=== PATIENT | male | born 1940 | race Caucasian/White ===

== ENCOUNTER 2016-07-11 11:54 | Inpatient (IN) | payer MEDICARE, OTHER ==
[~2016-07-11] VITALS: Ht 160 cm; Wt 74.9 kg
[2016-07-11] MEDS ORDERED: ONDANSETRON 4 MG INJ IV STA (14:05)
[2016-07-11] MEDS ORDERED: ASPIRIN 325 MG TAB PO STA (14:05)
[2016-07-11] MEDS ORDERED: morphine 4 MG/ML VIAL IV STA (14:05)
[2016-07-11] MEDS ORDERED: FURO20TA3 PO (14:16)
[2016-07-11] MEDS ORDERED: HYDR-906 PO (14:17)
[2016-07-11] MEDS ORDERED: NEBI10TA2 PO (14:17)
[2016-07-11] MEDS ORDERED: ASPI1CPM8 PO (14:17)
[2016-07-11] MEDS ORDERED: DOCU-144 PO (14:18)
[2016-07-11] MEDS ORDERED: ALFU10TA2 PO (14:18)
[2016-07-11] MEDS ORDERED: LABETALOL HCL 20MG INJ IV ONE (14:30)
[2016-07-11] MEDS ORDERED: ASPIRIN 325 MG TAB ONE (14:35)
[2016-07-11] MEDS ORDERED: morphine 4 MG/ML VIAL ONE (14:35)
[2016-07-11] MEDS ORDERED: LABETALOL HCL 20MG INJ ONE (14:35)
[2016-07-11] MEDS ORDERED: ONDANSETRON 4 MG INJ ONE (14:35)
[2016-07-11 14:54] LABS: BASOPHILS % 0.3 % (0.0-2.0); EOSINOPHILS # 0.1 10^3/ul (0.0-0.5); EOSINOPHILS % 1.1 % (0.0-7.0); HEMATOCRIT 38.2 % (42.0-52.0); HEMOGLOBIN 12.5 g/dl (14.0-18.0); LYMPHOCYTES # 1.2 10^3/ul (0.8-2.9); LYMPHOCYTES % 18.8 % (15.0-51.0); MEAN CORPUSCULAR HEMOGLOBIN 31.3 pg (29.0-33.0); MEAN CORPUSCULAR HGB CONC 32.7 g/dl (32.0-37.0); MEAN CORPUSCULAR VOLUME 95.7 fl (82.0-101.0); MEAN PLATELET VOLUME 6.8 fl (7.4-10.4); MONOCYTE # 0.6 10^3/ul (0.3-0.9); MONOCYTES % 9.8 % (0.0-11.0); NEUTROPHIL # 4.3 10^3/ul (1.6-7.5); PLATELET COUNT 212 10^3/UL (140-440); RED CELL DISTRIBUTION WIDTH 12.1 % (11.5-14.5); UNCORRECTED WBC 6.2 10^3/ul (4.8-10.8); WHITE BLOOD COUNT 6.2 10^3/ul (4.8-10.8)
[2016-07-11 15:02] LABS: CONDITION 1
[2016-07-11 15:10] LABS: INR 0.98; PARTIAL THROMBOPLASTIN TIME 32.9 Sec (25.0-35.0)
[2016-07-11 15:11] LABS: ALBUMIN 4.1 g/dl (3.3-4.9); CHLORIDE 103 mmol/L (97-110); SODIUM 145 mmol/L (135-144)
[2016-07-11 15:13] LABS: BILIRUBIN,INDIRECT 0.7 mg/dl (0-1.1); BILIRUBIN,TOTAL 0.7 mg/dl (0.2-1.3); CREATININE 1.28 mg/dl (0.61-1.24)
[2016-07-11 15:14] LABS: ALANINE AMINOTRANSFERASE 33 IU/L (13-69); ALBUMIN/GLOBULIN RATIO 1.41; ALKALINE PHOSPHATASE 57 IU/L (42-121); ANION GAP 16 (8-16); ASPARTATE AMINO TRANSFERASE 29 IU/L (15-46); BLOOD UREA NITROGEN 33 mg/dl (7-20); CALCIUM 8.8 mg/dl (8.4-10.2); CARBON DIOXIDE 30 mmol/L (21-31); GLUCOSE 91 mg/dl (70-220)
[2016-07-11 15:27] LABS: TROPONIN-I < 0.012 ng/ml (0.00-0.12)
--- NOTE | 2016-07-11 17:21 | ERA ---
ER Documentation Chief Complaint Date/Time DATE: 07/11/16 TIME: 17:15 Chief Complaint pt here for htn, 195/85 HPI Patient comes in for evaluation for elevated blood pressure readings. His son also reports episodes of syncope. Apparently he had an episode where he passed out and broke his left arm. His left arm was evaluated at [facility] emergency department and placed in an arm sling. He says he has had another syncopal event since that time. His son states his blood pressures had these elevations or spikes since then. He says in the [facility] emergency department they gave him something for the blood pressure but his blood pressure keeps elevating. He denies any headache, chest pain, shortness of breath, dizziness, focal weakness, nausea, vomiting, fever, sore throat, otalgia, diarrhea. Patient states he has been taking his blood pressure medications as prescribed. He states he does not know why his blood pressure has been so uncontrollable as of late. He also does not know what is triggering these episodes of syncope. They seem to be happening at random. ROS All systems reviewed and are negative except as per history of present illness. Medications Home Meds Reported Medications Alfuzosin Hcl* (Alfuzosin Hcl*) 10 Mg Tab.er.24h, 10 MG PO DAILY, #30 TAB.SA 07/11/16 Docusate Sodium* (Colace*) 100 Mg Capsule, 100 MG PO DAILY, #30 CAP 07/11/16 Nebivolol Hcl* (Bystolic*) 10 Mg Tablet, 10 MG PO BID, #30 TAB 07/11/16 Aspirin-Dipyridamole* (Aggrenox*) 25-200 Mg Cpmp.12hr, 1 CAP PO BID, CAP 07/11/16 Hydrocodone/Acetaminophen ([place] 5-325 Tablet) 1 Each Tablet, 1 EACH PO Q6, TAB 07/11/16 Furosemide* (Furosemide*) 20 Mg Tablet, 20 MG PO DAILY, #60 TAB 07/11/16 Allergies Allergies: Coded Allergies: No Known Allergy (Unverified , 07/11/16) PMhx/Soc Hx Cardiac Disorders: Yes (HNT) Hx Alcohol Use: No Hx Substance Use: No Hx Tobacco Use: No Smoking Status: Never smoker FmHx Family History: No diabetes Physical Exam Vitals Vital Signs Date Time Temp Pulse Resp B/P Pulse Ox O2 Delivery O2 Flow Rate FiO2 07/11/16 17:12 179/76 07/11/16 15:19 61 18 147/65 100 07/11/16 15:16 Nasal Cannula 2 07/11/16 12:01 97.9 71 18 195/85 97 Physical Exam Const: [] Head: Atraumatic Eyes: Normal Conjunctiva ENT: Normal External Ears, Nose and Mouth. Neck: Full range of motion..~ No meningismus. Resp: Clear to auscultation bilaterally Cardio: Regular rate and rhythm, no murmurs Abd: Soft, non tender, non distended. Normal bowel sounds Skin: No petechiae or rashes Back: No midline or flank tenderness Ext: No cyanosis, or edema Neur: Awake and alert Psych: Normal Mood and Affect Result Diagram: 07/11/16 1445 07/11/16 1445 Results 24 hrs Laboratory Tests Test 07/11/16 14:45 Activated Partial Thromboplast Time 32.9Sec Alanine Aminotransferase (ALT/SGPT) 33IU/L Albumin 4.1g/dl Albumin/Globulin Ratio 1.41 Alkaline Phosphatase 57IU/L Anion Gap 16 Aspartate Amino Transf (AST/SGOT) 29IU/L Basophils # 0.010^3/ul Basophils % 0.3% Blood Morphology Comment Blood Urea Nitrogen 33mg/dl Calcium Level 8.8mg/dl Carbon Dioxide Level 30mmol/L Chloride Level 103mmol/L Creatinine 1.28mg/dl Direct Bilirubin 0.00mg/dl Eosinophils # 0.110^3/ul Eosinophils % 1.1% Globulin 2.90g/dl Glucose Level 91mg/dl Hematocrit 38.2% Hemoglobin 12.5g/dl INR International Normalized Ratio 0.98 Indirect Bilirubin 0.7mg/dl Lymphocytes # 1.210^3/ul Lymphocytes % 18.8% Mean Corpuscular Hemoglobin 31.3pg Mean Corpuscular Hemoglobin Concent 32.7g/dl Mean Corpuscular Volume 95.7fl Mean Platelet Volume 6.8fl Monocytes # 0.610^3/ul Monocytes % 9.8% Neutrophils # 4.310^3/ul Neutrophils % 70.0% Nucleated Red Blood Cells # 0.010^3/ul Nucleated Red Blood Cells % 0.0/100WBC Platelet Count 41416^3/UL Potassium Level 4.0mmol/L Prothrombin Time 13.0Sec Prothrombin Time Ratio 1.0 Red Blood Count 4.0010^6/ul Red Cell Distribution Width 12.1% Sodium Level 145mmol/L Total Bilirubin 0.7mg/dl Total Protein 7.0g/dl Troponin I < 0.012ng/ml White Blood Count 6.210^3/ul Current Medications Medications (Trade) Dose Ordered Sig/Anne Route PRN Reason Start Time Stop Time Status Last Admin Dose Admin Aspirin (Aspirin) 325 mg ONCE STAT PO 07/11/16 14:05 07/11/16 14:09 DC 07/11/16 14:38 Morphine Sulfate (morphine) 4 mg ONCE STAT IV 07/11/16 14:05 07/11/16 14:09 DC 07/11/16 14:39 Ondansetron HCl (Zofran Inj) 4 mg ONCE STAT IV 07/11/16 14:05 07/11/16 14:09 DC 07/11/16 14:38 Labetalol HCl (Labetalol) 20 mg ONCE ONCE IV 07/11/16 14:30 07/11/16 14:31 DC 07/11/16 14:38 Hydralazine HCl (Apresoline) 20 mg ONCE ONCE IV 07/11/16 17:30 07/11/16 17:31 DC 07/11/16 17:21 Procedures/MDM CT head did not demonstrate any acute stroke or bleed. Chest x-ray did not demonstrate any acute cardiopulmonary process EKG shows normal sinus rhythm at approximately 60 bpm AZ interval slightly prolonged, no old EKGs available for comparison. Patient's blood pressure came down from 195/85-179/76 after 20 mg of labetalol IV. Departure Diagnosis: Primary Impression: Hypertensive urgency Additional Impressions: Syncope and collapse Humerus fracture Qualified Code: S42.295D - Other closed nondisplaced fracture of proximal end of left humerus with routine healing, subsequent encounter Condition: AVELINA Jackson Jul 11, 2016 17:21
[2016-07-11] MEDS ORDERED: hydrALAzine 20 MG INJ IV ONE (17:30)
[2016-07-11] MEDS ORDERED: ONDANSETRON 4 MG INJ IV PRN (18:30)
[2016-07-11] MEDS ORDERED: LABETALOL HCL 20MG INJ IV PRN (18:30)
[2016-07-11] MEDS ORDERED: NITROGLYCERIN (SL) 0.4 MG TAB SL PRN (18:30)
[2016-07-11] MEDS ORDERED: DOCUSATE SODIUM 100 MG CAP PO PRN (18:30)
[2016-07-11] MEDS ORDERED: NACL 0.9% 3 ML SYG IV SCH (18:30)
[2016-07-11] MEDS ORDERED: LORAZEPAM 2 MG INJ IV PRN (18:30)
[2016-07-11] MEDS ORDERED: hydrALAzine 20 MG INJ IV PRN (18:30)
[2016-07-11] MEDS ORDERED: morphine 2 MG INJ IV PRN (18:30)
--- NOTE | 2016-07-11 18:32 | HP ---
Date/Time of Note Date/Time of Note DATE: 07/11/16 TIME: 18:18 Assessment/Plan VTE Prophylaxis VTE Prophylaxis Intervention: heparin Lines/Catheters IV [facility]ter [facility]from [facility]): Saline Lock Assessment/Plan Assessment/Plan 76 yo male with a past medical history of essential hypertension, possible CHF, BPH, recent left shoulder fx 2/2 to fall, who has frequent syncopal episodes. 1. Syncope - 2/2 to possible vs POTS vs other - will admit the patient to telemetry, cycle cardiac markers, obtain 2 D ECHO, carotid duplex, fall precautions, tsh/mag levels, orthostatic vitals 2. ARTIE - 2/2 to ATN vs other - renally adjust medications, avoid nephrotoxins, monitor trend 3. Hypertensive Urgency - will continue home medications, hydralazine and labetalol prn for SBP > 160 4. BPH - continue with alpha inhibitor 5. CHF possible - continue with lasix 6. GI ppx - pepcid 7. DVT ppx - heparin answered all of his questions. as per clinical course. this history and physical took greater then 45 minutes to complete HPI/ROS Admit Date/Time Admit Date/Time 07/11/2016, 6:18 pm Hx of Present Illness 76 yo male with a past medical history of essential hypertension, possible CHF, BPH, recent left shoulder fx 2/2 to fall, who has frequent syncopal episodes. The patient has had elevated blood pressure readings at home, and dizziness, lightheadedness. Denies any trauma to the head. He has had multiple episodes. with loss of consciousness. He states that if he gets up from sleeping to standing, he has feelings of fainting. Denies any chest pain, shortness of breath, headache, blurriness in vision, urinary/bowel irregularities, fevers/ chills or other constitutional symptoms. He has never had echocardiogram or stress test. ER: hydralazine/labetalol/aspirin ROS 14 point review of systems completed, please refer to HPI for any positive findings PMH/Family/Social Past Medical History bph Medical History: congestive heart failure, hypertension Past Surgical History right hip fx Family History Significant Family History: diabetes, hypertension Social History Alcohol Use: none Smoking Status: Never smoker Drug Use: none Exam/Review of Systems Vital Signs Vitals Vital Signs Date Time Temp Pulse Resp B/P Pulse Ox O2 Delivery O2 Flow Rate FiO2 07/11/16 17:51 148/58 07/11/16 15:19 61 18 100 07/11/16 15:16 Nasal Cannula 2 07/11/16 12:01 97.9 Exam Exam Gen Leobardo: NAD, AAOx4 HEENT: NC/AT, PERRLA, EOMI, no pharyngeal erythema, no tonsillar exudates, no lymphadenopathy, no JVD, 1+ bilaterally carotid bruits NECK: supple, no thyromegaly THORAX: symmetrical, no obvious deformities CV: S1S2, RRR, II/ systolic murmur at bedside aortic Lungs: CTAB no W/C/R/R Abd: soft, NT/ND, +BS, no rebound, no guarding, neg HSM EXT: trace bilateral lower extremity edema, no ecchymosis, no clubbing, FROM Neuro: CN II-XII grossly intact, no focal deficits Psych: good mentation, alert and oriented, good mood and affect Skin: C/D/I Labs Result Diagram: 07/11/16 1445 07/11/16 1445 Medications Medications Current Medications Lorazepam (Ativan) 0.5 mg Q6H PRN IV ANXIETY; Start 07/11/16 at 18:30; Status UNV Ondansetron HCl (Zofran Inj) 4 mg Q6H PRN IV NAUSEA AND/OR VOMITING; Start 07/11 at 18:30; Status UNV Nitroglycerin (Nitroglycerin (Sl Tab) 0.4 Mg) 1 tab Q5M PRN SL CHEST PAIN; Start 07/11/16 at 18:30; Status UNV Acetaminophen (Tylenol Tab) 650 mg Q6H PRN PO PAIN LEVEL 1-3 OR FEVER; Start at 18:30; Status UNV Morphine Sulfate (morphine) 2 mg Q4H PRN IV PAIN LEVEL 7-10; Start 07/11/16 at 18:30; Status UNV Docusate Sodium (Colace) 100 mg Q12H PRN PO CONSTIPATION; Start 07/11/16 at 18: 30; Status UNV Famotidine (Pepcid Iv) 20 mg Q12 IV ; Start 07/11/16 at 21:00; Status UNV Heparin Sodium (Porcine) (Heparin (5000 Units/0.5 ml)) 5,000 unit Q12 SC ; Start 07/11/16 at 21:00; Status UNV Alfuzosin HCl (Uroxatral) 10 mg DAILY PO ; Start 07/12/16 at 09:00; Status UNV Dipyridamole/ Aspirin (Aggrenox) 1 cap BID PO ; Start 07/11/16 at 21:00; Status UNV Docusate Sodium (Colace) 100 mg DAILY PO ; Start 07/12/16 at 09:00; Status UNV Furosemide (Lasix) 20 mg DAILY PO ; Start 07/12/16 at 09:00; Status UNV Miscellaneous Medication (Bystolic) 10 mg BID PO ; Start 07/11/16 at 21:00; Status UNV Hydralazine HCl (Apresoline) 10 mg Q6H PRN IV sbp > 160; Start 07/11/16 at 18:30 ; Status UNV Labetalol HCl (Labetalol) 10 mg Q6H PRN IV sbp >160; Start 07/11/16 at 18:30; Status UNV SHAMEKA ALONZO MD Jul 11, 2016 18:28
[2016-07-11 18:35] LABS: CHOL/HDL RATIO 2.9 RATIO; CREATINE KINASE 116 IU/L (23-200); MAGNESIUM 2.1 mg/dl (1.7-2.5)
[2016-07-11 18:46] LABS: CK-MB 2.11 ng/ml (0.0-2.4)
[2016-07-11 18:48] LABS: TROPONIN-I < 0.012 ng/ml (0.00-0.12)
[2016-07-11 19:07] LABS: THYROID STIMULATING HORMONE 1.22 MIU/L (0.465-4.680)
--- NOTE | 2016-07-11 19:18 | RADRPT ---
PROCEDURE: CT Brain without contrast. CLINICAL INDICATION: Syncope TECHNIQUE: Routine CT scan of the brain was performed on a high resolution multi detector scanner without intravenous contrast. One or more of the following dose reduction techniques were used: Auto mated exposure control; Adjustment of the mA and/or kV according to patient size; Use of iterative r econstruction technique. CTDI = 44, 44 mGy. DLP = 810 mGy-cm. COMPARISON: No prior relevant examinations are available for comparison. FINDINGS: Hemorrhage: No evidence of intracranial hemorrhage. Acute ischemic changes: No evidence of acute ischemic changes. Mass effect/Midline shift: None. Parenchymal volume: Mild central parenchymal volume loss is evident. Ventricular system: Concordant with parenchymal volume. Chronic changes: Multiple small chronic appearing lacunar infarcts of the bilateral basal ganglia ar e evident measuring up to 4 mm. There are numerous and confluent areas of significant low attenuati on change within the supratentorial white matter most compatible with severe chronic microvascular i schemic changes. Atherosclerotic calcifications of the cavernous portions of both internal carotid arteries are prese nt. Extracranial soft tissues: Unremarkable. Calvarium: No fractures. Paranasal sinuses: Visualized paranasal sinuses are clear. Mastoid air cells: Visualized mastoid air cells are clear. IMPRESSION: No acute intracranial abnormalities. Severe chronic-appearing microvascular ischemic changes of the supratentorial white matter with mult iple small chronic appearing lacunar infarcts of the bilateral basal ganglia.. MRI of the brain may be useful for further evaluation. RPTAT: AADD .Vaughn Guy MD, Date Time Electronically viewed and signed by .Vaughn Guy MD, on 07/11/2016 16:59 .B/
--- NOTE | 2016-07-11 19:19 | RADRPT ---
PROCEDURE: XR Chest. CLINICAL INDICATION: Chest pain TECHNIQUE: Single frontal chest x-ray. COMPARISON: None. FINDINGS: The patient is minimally rotated to the right.There is minimal prominence of the lung interstitium l ikely minimal chronic changes. No focal lung consolidation is seen. Portable AP technique accentuat es the size of the cardiac silhouette. The heart does not appear to be grossly enlarged. ECG leads are projected over the chest. Degenerative changes in thoracic spine. Deformity of the proximal l eft humerus consistent with fracture.. IMPRESSION: No definite acute abnormality seen. Please see above. RPTAT: HJES .Ty Negro MD, MD Date Time Electronically viewed and signed by .Ty Negro MD, MD on 07/11/2016 15:03 .S/
[2016-07-11] MEDS ORDERED: FAMOTIDINE 20 MG INJ IV SCH (21:00)
[2016-07-11] MEDS: NEBIVOLOL 5 MG TAB PO SCH (21:00)
[2016-07-11 22:18] VITALS: PULSE 90
[2016-07-11] MEDS: DIPYRIDAMOLE/ASPIRIN (SR) CAP PO SCH (22:46)
[2016-07-11] MEDS: HEPARIN 5,000 UNIT/0.5 ML SYG SC SCH (22:48)
[2016-07-11 22:58] VITALS: Ht 160 cm; Wt 74.9 kg
[2016-07-11 23:01] VITALS: BP_SYST 157; BP_SYST 167; BP_SYST 181; BP_DIAS 61; BP_DIAS 65; BP_DIAS 79; PULSE 89; RESP 18
[2016-07-11] MEDS: ACETAMINOPHEN 325 MG TAB PO PRN (23:18)
[2016-07-11 23:37] LABS: TROPONIN-I 0.033 ng/ml (0.00-0.12)
[2016-07-11 23:39] LABS: CK-MB 3.07 ng/ml (0.0-2.4)
[2016-07-12] VITALS (13 sets, daily range): BP systolic 99–156; BP diastolic 49–77; PULSE 71–90; RESP 15–18
[2016-07-12] MEDS ORDERED: FUROSEMIDE 20 MG TAB PO SCH (06:00)
[2016-07-12 06:32] LABS: BASOPHILS % 0.2 % (0.0-2.0); EOSINOPHILS % 0.3 % (0.0-7.0); HEMATOCRIT 36.5 % (42.0-52.0); HEMOGLOBIN 12.3 g/dl (14.0-18.0); LYMPHOCYTES # 0.9 10^3/ul (0.8-2.9); LYMPHOCYTES % 15.1 % (15.0-51.0); MEAN CORPUSCULAR HEMOGLOBIN 31.8 pg (29.0-33.0); MEAN CORPUSCULAR HGB CONC 33.5 g/dl (32.0-37.0); MEAN CORPUSCULAR VOLUME 94.9 fl (82.0-101.0); MEAN PLATELET VOLUME 7.5 fl (7.4-10.4); MONOCYTE # 0.4 10^3/ul (0.3-0.9); MONOCYTES % 7.3 % (0.0-11.0); NEUTROPHIL # 4.6 10^3/ul (1.6-7.5); NEUTROPHILS % 77.1 % (39.0-77.0); PLATELET COUNT 205 10^3/UL (140-440); RED BLOOD COUNT 3.85 10^6/ul (4.70-6.10); RED CELL DISTRIBUTION WIDTH 12.1 % (11.5-14.5)
[2016-07-12 06:38] LABS: CONDITION 1
[2016-07-12 06:52] LABS: CREATININE 1.3 mg/dl (0.61-1.24)
[2016-07-12 06:53] LABS: CALCIUM 8.5 mg/dl (8.4-10.2)
[2016-07-12 06:57] LABS: CK-MB 4.4 ng/ml (0.0-2.4)
[2016-07-12 06:58] LABS: TROPONIN-I 0.085 ng/ml (0.00-0.12)
[2016-07-12] MEDS: FAMOTIDINE 20 MG INJ IV SCH (08:45)
[2016-07-12] MEDS: HEPARIN 5,000 UNIT/0.5 ML SYG SC SCH ×2 (08:47→20:20)
[2016-07-12] MEDS: NEBIVOLOL 5 MG TAB PO SCH ×2 (08:47→20:19)
[2016-07-12] MEDS: DIPYRIDAMOLE/ASPIRIN (SR) CAP PO SCH ×2 (08:48→20:18)
[2016-07-12] MEDS: DOCUSATE SODIUM 100 MG CAP PO SCH (08:48)
[2016-07-12] MEDS: ACETAMINOPHEN 325 MG TAB PO PRN (08:48)
[2016-07-12] MEDS ORDERED: ASPIRIN 81 MG TAB PO SCH (09:00)
[2016-07-12] MEDS ORDERED: ALFUZOSIN (SR) 10 MG TAB PO SCH (09:00)
--- NOTE | 2016-07-12 13:27 | RADRPT ---
PROCEDURE: XR Elbow. CLINICAL INDICATION: Trauma, left elbow pain TECHNIQUE: 2 views of the left elbow performed. COMPARISON: None. FINDINGS: There is no definite acute fracture though assessment for a joint effusion is somewhat limited due t o poorly positioned lateral radiograph. There is no significant joint effusion identified. Alignme nt is normal. IMPRESSION: 1. No radiographic evidence of acute osseous abnormality or significant joint effusion, noting a jenny ewhat limited lateral radiograph. RPTAT: UU .Gilson Deutsch MD, Date Time Electronically viewed and signed by .Gilson Deutsch MD, on 07/12/2016 13:27 .K/
--- NOTE | 2016-07-12 13:30 | RADRPT ---
PROCEDURE: CR left humerus CLINICAL INDICATION: Arm pain TECHNIQUE: 2 views of humerus performed COMPARISON: No comparison available. FINDINGS: There is normal mineralization. There is an acute partially displaced surgical neck fracture with a nondisplaced greater tuberosity comminution The osseous structures are otherwise normal in mineralization, architecture and alignment.No fractur e or osseous lesion is identified. The joints are unremarkable. The soft tissues are unremarkable. IMPRESSION: Acute partially displaced surgical neck fracture with a nondisplaced greater tuberosity comminution. RPTAT: HGDB .Lloyd Salinas MD, MD Date Time Electronically viewed and signed by .Lloyd Salinas MD, on 07/12/2016 13:30 .B/
--- NOTE | 2016-07-12 13:31 | RADRPT ---
PROCEDURE: CR left shoulder CLINICAL INDICATION: Shoulder pain TECHNIQUE: 3 views performed COMPARISON: No comparison available. FINDINGS: There is normal mineralization . There is an acute partially displaced surgical neck fracture with a nondisplaced greater tuberosity comminution .The glenohumeral and acromioclavicular joints are unre markable. The soft tissues are unremarkable. IMPRESSION: Acute partially displaced surgical neck fracture with a nondisplaced greater tuberosity comminution. RPTAT: HGDB .Lloyd Salinas MD, Date Time Electronically viewed and signed by .Lloyd Salinas MD, on 07/12/2016 13:31 .B/
--- NOTE | 2016-07-12 13:38 | PN ---
Date/Time of Note Date/Time of Note DATE: 07/12/16 TIME: 13:35 Assessment/Plan VTE Prophylaxis VTE Prophylaxis Intervention: SCD's Lines/Catheters IV Catheter Type (from Nrs): Saline Lock Assessment/Plan Problems: (1) BPH NOS w ur obs/LUTS Status: Chronic Comment: Noted we will check bladder scan. He may have been slightly dehydrated on admission but I am concerned that even with the specific blockade using alfuzocin this can cause syncope. He has had 2 known falls and therefore this needs to be paid attention to carefully (2) Syncope and collapse Status: Acute Comment: As noted above he has had 2 known falls 1 with a significant arm injury. Alfuzocin might be an issue although that is a little limited possibility. I am concerned there is a cardiac issue. Pending at this time are the interpretation of the echocardiogram. On the rhythm strip on telemetry overnight there is been no significant abnormalities (3) Humerus fracture Status: Acute Comment: Will recheck x-ray. May need orthopedic Qualifiers: Encounter type: subsequent encounter Humerus Location: proximal Fracture type: closed Fracture morphology: other fracture Fracture alignment: nondisplaced Laterality: left Fracture healing: with routine healing Qualified Code: S42.295D - Other closed nondisplaced fracture of proximal end of left humerus with routine healing, subsequent encounter Subjective 24 Hr Interval Summary Free Text/Dictation Charming vibrant Greek gentleman sitting in bed translation by his grandson and his brother Constitutional: no complaints Respiratory: no complaints Cardiovascular: no complaints Gastrointestinal: no complaints Genitourinary: no complaints Musculoskeletal: other Exam/Review of Systems Vital Signs Vitals Vital Signs Date Time Temp Pulse Resp B/P Pulse Ox O2 Delivery O2 Flow Rate FiO2 07/12/16 12:15 98.0 73 18 132/59 98 07/11/16 23:01 Room Air 07/11/16 15:16 2 Intake and Output 07/11/16 07/11/16 07/12/16 15:00 23:00 07:00 Intake Total 350 ml Balance 350 ml Exam Constitutional: alert, oriented Neck: non-tender, supple Respiratory: clear to auscultation, normal air movement Cardiovascular: nl pulses, regular rate and rhythm Extremities: other Results Result Diagram: 07/12/16 0505 07/12/16 0505 Results 24 hrs Laboratory Tests Test 07/11/16 14:45 07/11/16 18:20 07/11/16 22:50 07/12/16 05:05 Activated Partial Thromboplast Time 32.9 Alanine Aminotransferase (ALT/SGPT) 33 Albumin 4.1 Albumin/Globulin Ratio 1.41 Alkaline Phosphatase 57 Anion Gap 16 17 H Aspartate Amino Transf (AST/SGOT) 29 Basophils # 0.0 0.0 Basophils % 0.3 0.2 Blood Morphology Comment Blood Urea Nitrogen 33 H 33 H Calcium Level 8.8 8.5 Carbon Dioxide Level 30 24 Chloride Level 103 104 Creatinine 1.28 H 1.30 H Direct Bilirubin 0.00 Eosinophils # 0.1 0.0 Eosinophils % 1.1 0.3 Globulin 2.90 Glucose Level 91 104 Hematocrit 38.2 L 36.5 L Hemoglobin 12.5 L 12.3 L INR International Normalized Ratio 0.98 Indirect Bilirubin 0.7 Lymphocytes # 1.2 0.9 Lymphocytes % 18.8 15.1 Mean Corpuscular Hemoglobin 31.3 31.8 Mean Corpuscular Hemoglobin Concent 32.7 33.5 Mean Corpuscular Volume 95.7 94.9 Mean Platelet Volume 6.8 L 7.5 Monocytes # 0.6 0.4 Monocytes % 9.8 7.3 Neutrophils # 4.3 4.6 Neutrophils % 70.0 77.1 H Nucleated Red Blood Cells # 0.0 0.0 Nucleated Red Blood Cells % 0.0 0.0 Platelet Count 212 205 Potassium Level 4.0 4.0 Prothrombin Time 13.0 Prothrombin Time Ratio 1.0 Red Blood Count 4.00 L 3.85 L Red Cell Distribution Width 12.1 12.1 Sodium Level 145 H 141 Total Bilirubin 0.7 Total Protein 7.0 Troponin I < 0.012 < 0.012 0.033 0.085 White Blood Count 6.2 6.0 Cholesterol Level 141 Cholesterol/HDL Ratio 2.9 Creatine Kinase 116 220 H 343 H Creatine Kinase Index 1.8 1.4 1.3 Creatinine Kinase MB (Mass) 2.11 3.07 H 4.40 H HDL Cholesterol 48 Hemoglobin A1c 4.8 LDL Cholesterol, Calculated 76 Magnesium Level 2.1 Thyroid Stimulating Hormone (TSH) 1.220 Triglycerides Level 85 Medications Medications Current Medications Lorazepam (Ativan) 0.5 mg Q6H PRN IV ANXIETY; Start 07/11/16 at 18:30 Ondansetron HCl (Zofran Inj) 4 mg Q6H PRN IV NAUSEA AND/OR VOMITING; Start 07/11 at 18:30 Nitroglycerin (Nitroglycerin (Sl Tab) 0.4 Mg) 1 tab Q5M PRN SL CHEST PAIN; Start 07/11/16 at 18:30 Acetaminophen (Tylenol Tab) 650 mg Q6H PRN PO PAIN LEVEL 1-3 OR FEVER Last administered on 07/12/16 08:48; Admin Dose 650 MG; Start 07/11/16 at 18:30 Morphine Sulfate (morphine) 2 mg Q4H PRN IV PAIN LEVEL 7-10; Start 07/11/16 at 18:30 Docusate Sodium (Colace) 100 mg Q12H PRN PO CONSTIPATION; Start 07/11/16 at 18: 30 Heparin Sodium (Porcine) (Heparin (5000 Units/0.5 ml)) 5,000 unit Q12 SC Last administered on 07/12/16 08:47; Admin Dose 5,000 UNIT; Start 07/11/16 at 21:00 Alfuzosin HCl (Uroxatral) 10 mg DAILY PO Last administered on 07/12/16 08:48; Admin Dose 10 MG; Start 07/12/16 at 09:00 Dipyridamole/ Aspirin (Aggrenox) 1 cap BID PO Last administered on 07/12/16 08: 48; Admin Dose 1 CAP; Start 07/11/16 at 21:00 Docusate Sodium (Colace) 100 mg DAILY PO Last administered on 07/12/16 08:48; Admin Dose 100 MG; Start 07/12/16 at 09:00 Miscellaneous Medication (Bystolic) 10 mg BID PO Last administered on 07/12/16 08:47; Admin Dose 10 MG; Start 07/11/16 at 21:00 Hydralazine HCl (Apresoline) 10 mg Q6H PRN IV sbp > 160 Last administered on 23:18; Admin Dose 10 MG; Start 07/11/16 at 18:30 Labetalol HCl (Labetalol) 10 mg Q6H PRN IV sbp >160; Start 07/11/16 at 18:30 Famotidine 20 mg 20 mg DAILY IV Last administered on 07/12/16 08:45; Admin Dose 20 MG; Start 07/12/16 at 09:00 Sodium Chloride (NS) 1,000 ml @ 70 mls/hr [id number] IV Last administered on 00:09; Admin Dose 70 MLS/HR; Start 07/12/16 at 00:00; Stop 07/12/16 at 14:17 Aspirin (Aspirin) 81 mg DAILY PO Last administered on 07/12/16 08:47; Admin Dose 81 MG; Start 07/12/16 at 09:00 Influenza Virus Vaccine (Fluzone) 0.5 ml ONCE ONCE IM* ; Start 07/13/16 at 09:00 ; Stop 07/13/16 at 09:01 KATHY SHETTY MD Jul 12, 2016 13:38
--- NOTE | 2016-07-12 13:40 | RADRPT ---
Echocardiogram Report Patient Name: YOUNG MA Gender: Male Date: 1940 Study Date: 12-Jul-2016 [employer] Instructor: Mimi Palacios [facility]UST Location: 510 Ref. Physician: SHAMEKA ALONZO Quality: Good Procedures: Transthoracic echocardiogram with complete 2D, M-Mode, and doppler examination. Indications: Syncope. 2D/M Mode Doppler Measurement Value Normal Ranges Measurement Value Normal Ranges LVIDd 2D 5.1 3.5 - 5.6 cm AV Peak Genaro 1.6 m/sec LVIDs 2D 2.5 2.1 - 4.1 cm AV Peak PG 9.7 mmHg LVPWd 2D 0.9 0.6 - 1.1 cm LVOT Peak Genaro 1.3 m/sec IVSd 2D 0.8 0.6 - 1.1 cm LVOT Peak PG 7.1 mmHg AoR Diam 2D 2.7 2.0 - 3.7 cm MV E Peak Genaro 0.6 m/sec EDV 2D 126.0 cm3 MV A Peak Genaro 1.1 m/sec ESV 2D 15.4 cm3 MV E/A 0.6 LA Dimen 2D 3.7 2.3 - 4.0 cm MV Decel Time 152 msec MV Decel Bee 4 MV E/A 0.6 TR Peak Genaro 2.8 m/sec TR Peak PG 32.3 mmHg RVSP 35.0 mmHg Findings Left Ventricle: Normal left ventricular systolic function. Normal left ventricular cavity size. Normal left ventricular wall thickness. Ejection fraction is visually estimated at 65 %. Tissue Doppler/Mitral Doppler indices are consistent with impaired relaxation (Stage I diastolic dysfunction). Right Ventricle: Normal right ventricular size. Normal right ventricular systolic function. Left Atrium: The left atrium is normal in size. Right Atrium: The right atrium is normal in size. Mitral Valve: Normal appearance and function of the mitral valve with trace physiologic regurgitation. Aortic Valve: Normal appearance of the aortic valve. No significant aortic stenosis or insufficiency. Tricuspid Valve: Normal appearance and function of the tricuspid valve with trace physiologic regurgitation. Estimated peak PA systolic pressure 35 mmHg. Pericardium: Normal pericardium with no significant pericardial effusion. Aorta: Normal aortic root. IVC: Normal size and normal respiratory collapse consistent with normal right atrial pressure. Conclusions Normal left ventricular systolic function. Normal left ventricular cavity size. Normal left ventricular wall thickness. Ejection fraction is visually estimated at 65 %. Tissue Doppler/Mitral Doppler indices are consistent with impaired relaxation (Stage I diastolic dysfunction). Normal right ventricular size. Normal right ventricular systolic function. The left atrium is normal in size. The right atrium is normal in size. Estimated peak PA systolic pressure 35 mmHg. No significant valvular stenosis or regurgitation seen. Normal pericardium with no significant pericardial effusion. Electronically Signed By: Samson Butler 12-Jul-2016 13:39:31 -0800 Patient Name: YOUNG MA Study Date: 12-Jul-[id number]
--- NOTE | 2016-07-12 14:13 | CONS ---
Date/Time of Note Date/Time of Note DATE: 07/12/16 TIME: 14:07 Assessment/Plan Assessment/Plan Additional Assessment/Plan Fall, possible syncope Hypertension Orthostatic hypotension Hypovolemia Preserved ejection fraction Left shoulder fracture Possible history of CVA -Patient with overall heart rate improved but positive for orthostatics checked yesterday. Would continue IV hydration, agree with stopping alfuzosin secondary to increased orthostatic hypotension. Patient currently on Bystolic, would continue with holding parameters. Continue telemetry monitoring, check carotid Dopplers if not done already. Consultation Date/Type/Reason Admit Date/Time 07/11/2016, 6:18 pm Type of Consultation: cv Reason for Consultation Hypertension and syncope Hx of Present Illness This is a 76 year old male with past medical history of hypertension, questionable CVA in the distant past, who had a fall approximately one week ago. The history of the fall is unclear. As per the patient, this was a mechanical fall where he tripped. The family is concerned that he had a syncopal episode. He denies loss of consciousness or dizziness. He did fall on his left shoulder with trauma. He did present to [facility] a few days later was told he had a shoulder fracture and recommended orthopedic outpatient follow-up. Yesterday, patient had his blood pressure checked by family member and he was told it was very high and he came to the emergency room for evaluation and care. He denied any dizziness, headache, chest pain or shortness of breath. He denies exertional chest pain, shortness of breath or dizziness. At times he does get lightheaded with standing up from a sitting position. 12 point review of systems was performed with all pertinent positives and negatives mentioned above and all else is negative Constitutional: no complaints Respiratory: no complaints Cardiovascular: no complaints Gastrointestinal: no complaints Genitourinary: no complaints Musculoskeletal: other Past Medical History Possible CVA Prostate disorder Medical History: hypertension Past Surgical History Past Surgical Hx: other (hip replacement) Family History Significant Family History: no pertinent family hx Social History Alcohol Use: none Smoking Status: Never smoker Drug Use: none Other Social History Currently living with family since son with recent CVA and is currently in rehabilitation Exam/Review of Systems Vital Signs Vitals Vital Signs Date Time Temp Pulse Resp B/P Pulse Ox O2 Delivery O2 Flow Rate FiO2 07/12/16 12:15 98.0 73 18 132/59 98 07/11/16 23:01 Room Air 07/11/16 15:16 2 Intake and Output 07/11/16 07/11/16 07/12/16 15:00 23:00 07:00 Intake Total 350 ml Balance 350 ml Exam No apparent distress Constitutional: alert, oriented, well developed Head: normocephalic Neck: supple Respiratory: other (course breath sounds bilaterally, no wheezing) Cardiovascular: other (S1-S2 heard), regular rate and rhythm, systolic murmur ( faint early peaking) Gastrointestinal: bowel sounds, non-tender, other (no guarding), soft Extremities: other (no edema, left shoulder with significant ecchymosis) Results Result Diagram: 07/12/16 0505 07/12/16 0505 Results 24 hrs Laboratory Tests Test 07/11/16 14:45 07/11/16 18:20 07/11/16 22:50 07/12/16 05:05 Activated Partial Thromboplast Time 32.9 Alanine Aminotransferase (ALT/SGPT) 33 Albumin 4.1 Albumin/Globulin Ratio 1.41 Alkaline Phosphatase 57 Anion Gap 16 17 H Aspartate Amino Transf (AST/SGOT) 29 Basophils # 0.0 0.0 Basophils % 0.3 0.2 Blood Morphology Comment Blood Urea Nitrogen 33 H 33 H Calcium Level 8.8 8.5 Carbon Dioxide Level 30 24 Chloride Level 103 104 Creatinine 1.28 H 1.30 H Direct Bilirubin 0.00 Eosinophils # 0.1 0.0 Eosinophils % 1.1 0.3 Globulin 2.90 Glucose Level 91 104 Hematocrit 38.2 L 36.5 L Hemoglobin 12.5 L 12.3 L INR International Normalized Ratio 0.98 Indirect Bilirubin 0.7 Lymphocytes # 1.2 0.9 Lymphocytes % 18.8 15.1 Mean Corpuscular Hemoglobin 31.3 31.8 Mean Corpuscular Hemoglobin Concent 32.7 33.5 Mean Corpuscular Volume 95.7 94.9 Mean Platelet Volume 6.8 L 7.5 Monocytes # 0.6 0.4 Monocytes % 9.8 7.3 Neutrophils # 4.3 4.6 Neutrophils % 70.0 77.1 H Nucleated Red Blood Cells # 0.0 0.0 Nucleated Red Blood Cells % 0.0 0.0 Platelet Count 212 205 Potassium Level 4.0 4.0 Prothrombin Time 13.0 Prothrombin Time Ratio 1.0 Red Blood Count 4.00 L 3.85 L Red Cell Distribution Width 12.1 12.1 Sodium Level 145 H 141 Total Bilirubin 0.7 Total Protein 7.0 Troponin I < 0.012 < 0.012 0.033 0.085 White Blood Count 6.2 6.0 Cholesterol Level 141 Cholesterol/HDL Ratio 2.9 Creatine Kinase 116 220 H 343 H Creatine Kinase Index 1.8 1.4 1.3 Creatinine Kinase MB (Mass) 2.11 3.07 H 4.40 H HDL Cholesterol 48 Hemoglobin A1c 4.8 LDL Cholesterol, Calculated 76 Magnesium Level 2.1 Thyroid Stimulating Hormone (TSH) 1.220 Triglycerides Level 85 Medications Medications Current Medications Lorazepam (Ativan) 0.5 mg Q6H PRN IV ANXIETY; Start 07/11/16 at 18:30 Ondansetron HCl (Zofran Inj) 4 mg Q6H PRN IV NAUSEA AND/OR VOMITING; Start 07/11 at 18:30 Nitroglycerin (Nitroglycerin (Sl Tab) 0.4 Mg) 1 tab Q5M PRN SL CHEST PAIN; Start 07/11/16 at 18:30 Acetaminophen (Tylenol Tab) 650 mg Q6H PRN PO PAIN LEVEL 1-3 OR FEVER Last administered on 07/12/16 08:48; Admin Dose 650 MG; Start 07/11/16 at 18:30 Morphine Sulfate (morphine) 2 mg Q4H PRN IV PAIN LEVEL 7-10; Start 07/11/16 at 18:30 Docusate Sodium (Colace) 100 mg Q12H PRN PO CONSTIPATION; Start 07/11/16 at 18: 30 Heparin Sodium (Porcine) (Heparin (5000 Units/0.5 ml)) 5,000 unit Q12 SC Last administered on 07/12/16 08:47; Admin Dose 5,000 UNIT; Start 07/11/16 at 21:00 Alfuzosin HCl (Uroxatral) 10 mg DAILY PO Last administered on 07/12/16 08:48; Admin Dose 10 MG; Start 07/12/16 at 09:00 Dipyridamole/ Aspirin (Aggrenox) 1 cap BID PO Last administered on 07/12/16 08: 48; Admin Dose 1 CAP; Start 07/11/16 at 21:00 Docusate Sodium (Colace) 100 mg DAILY PO Last administered on 07/12/16 08:48; Admin Dose 100 MG; Start 07/12/16 at 09:00 Miscellaneous Medication (Bystolic) 10 mg BID PO Last administered on 07/12/16 08:47; Admin Dose 10 MG; Start 07/11/16 at 21:00 Hydralazine HCl (Apresoline) 10 mg Q6H PRN IV sbp > 160 Last administered on 23:18; Admin Dose 10 MG; Start 07/11/16 at 18:30 Labetalol HCl (Labetalol) 10 mg Q6H PRN IV sbp >160; Start 07/11/16 at 18:30 Famotidine 20 mg 20 mg DAILY IV Last administered on 07/12/16 08:45; Admin Dose 20 MG; Start 07/12/16 at 09:00 Sodium Chloride (NS) 1,000 ml @ 70 mls/hr [id number] IV Last administered on 00:09; Admin Dose 70 MLS/HR; Start 07/12/16 at 00:00; Stop 07/12/16 at 14:17 Aspirin (Aspirin) 81 mg DAILY PO Last administered on 07/12/16 08:47; Admin Dose 81 MG; Start 07/12/16 at 09:00 Influenza Virus Vaccine (Fluzone) 0.5 ml ONCE ONCE IM* ; Start 07/13/16 at 09:00 ; Stop 07/13/16 at 09:01 Procedures Procedures ECG demonstrates sinus rhythm at 59 bpm, QRS 98 ms, no significant ischemic STT wave abnormalities Samson Butler DO Jul 12, 2016 14:13
--- NOTE | 2016-07-12 14:57 | RADRPT ---
PROCEDURE: US Carotids. CLINICAL INDICATION: bruit , syncope TECHNIQUE: Multiple sonographic of the carotid bifurcation region and vertebral arteries were obta ined utilizing capone scale, duplex and color-flow imaging. The images were reviewed on a PACS worksta tion. COMPARISON: No prior studies are available for comparison. FINDINGS: Evaluation of the right carotid bifurcation region reveals mild to moderate soft plaque. Evaluation of the left carotid bifurcation region reveals no significant calcific atherosclerotic di sease. There is antegrade flow within the vertebral arteries bilaterally. RIGHT CAROTID MEASUREMENTS: Common Carotid [id number] (cm/sec) Internal Carotid Artery - uansgoeo057.5 (cm/sec) Internal Carotid Artery - vew487.7 (cm/sec) Internal Carotid Artery - fdufde78.3 (cm/sec) Internal Carotid/Common Carotid1.15 LEFT CAROTID MEASUREMENTS: Common Carotid Rftgao40.8 (cm/sec) Internal Carotid Artery - menzbaav044.1 (cm/sec) Internal Carotid Artery - mid58.4 (cm/sec) Internal Carotid Artery - .2 (cm/sec) Internal Carotid/Common Carotid1.29 RPTAT: AA IMPRESSION: Mild to moderate soft plaque in the right ICA with a 50-69% stenosis. Normal antegrade flow in the vertebral arteries bilaterally. .Sven Zuñiga MD, MD Date Time Electronically viewed and signed by .Sven Zuñiga MD, MD on 07/12/2016 14:56 .S/
[2016-07-12 15:27] LABS: TROPONIN-I 0.323 ng/ml (0.00-0.12)
--- NOTE | 2016-07-12 15:28 | CONS ---
DATE OF ADMISSION: 07/11/2016 DATE OF CONSULTATION: 07/12/2016 CHIEF COMPLAINT: Left shoulder pain. HISTORY OF PRESENT ILLNESS: This is a 76-year-old male who has multiple medical comorbidities and h ad a syncopal episode. He landed on his left shoulder. He is complaining of pain with movement. H e denies any numbness or weakness. He has no other complaints. The pain does not radiate. It was isolated to the left shoulder. PAST MEDICAL HISTORY: Hypertension, CHF, BPH. MEDICATIONS: Please see chart. PAST SURGICAL HISTORY: Right hip fracture. SOCIAL HISTORY: The patient denies tobacco, alcohol or drug use. He lives by himself. FAMILY HISTORY: Diabetes, hypertension. ALLERGIES: NO KNOWN DRUG ALLERGIES. REVIEW OF SYSTEMS: Negative except for what is in the HPI. PHYSICAL EXAMINATION: VITAL SIGNS: 97.9, 148/58, 61 pulse, respiratory rate 18. GENERAL: The patient is in no acute distress. He is resting comfortably. LEFT SHOULDER: There is extensive ecchymosis over the entire left upper extremity. He is tender t o palpation over the anterior shoulder. He is nontender over the clavicle. He has 5/5 function of his axillary, radial, ulnar, and median nerves. He has intact sensation in all dermatomes with palp able radial artery pulse. X-rays, left shoulder: Two views left shoulder demonstrated a nondisplaced greater tuberosity fract ure of the proximal humerus. There is no other fracture or dislocation. X-rays, left elbow: Two views of the left lobe do not demonstrate any fractures or dislocations. IMPRESSION: A 76-year-old male with syncope, sustaining a left nondisplaced greater tuberosity frac ture. PLAN: The patient will require a sling. He can be discharged from orthopedic standpoint with sabine carvajal as an outpatient. Dictated By: AXEL LARA/POLO Conf#: [id number] DID#: [id number]
[2016-07-12] MEDS ORDERED: SOD CHLORIDE 0.9% 1,000 ML IV SCH ×2 (17:00)
[2016-07-12 21:04] LABS: CK-MB 8.61 ng/ml (0.0-2.4)
[2016-07-12 21:07] LABS: TROPONIN-I 0.357 ng/ml (0.00-0.12)
[2016-07-13] VITALS (12 sets, daily range): BP systolic 144–202; BP diastolic 65–84; PULSE 67–78; RESP 18–21
[2016-07-13 05:59] LABS: BASOPHILS % 0.6 % (0.0-2.0); EOSINOPHILS % 0.7 % (0.0-7.0); HEMATOCRIT 37.1 % (42.0-52.0); HEMOGLOBIN 12.4 g/dl (14.0-18.0); LYMPHOCYTES # 1.2 10^3/ul (0.8-2.9); LYMPHOCYTES % 18.4 % (15.0-51.0); MEAN CORPUSCULAR HEMOGLOBIN 31.8 pg (29.0-33.0); MEAN CORPUSCULAR HGB CONC 33.6 g/dl (32.0-37.0); MEAN CORPUSCULAR VOLUME 94.8 fl (82.0-101.0); MEAN PLATELET VOLUME 7.3 fl (7.4-10.4); MONOCYTE # 0.5 10^3/ul (0.3-0.9); NEUTROPHIL # 4.9 10^3/ul (1.6-7.5); NEUTROPHILS % 73.3 % (39.0-77.0); PLATELET COUNT 208 10^3/UL (140-440); RED BLOOD COUNT 3.91 10^6/ul (4.70-6.10); RED CELL DISTRIBUTION WIDTH 12.4 % (11.5-14.5); UNCORRECTED WBC 6.7 10^3/ul (4.8-10.8); WHITE BLOOD COUNT 6.7 10^3/ul (4.8-10.8)
[2016-07-13 06:00] LABS: CONDITION 1
[2016-07-13 06:09] LABS: POTASSIUM 3.9 mmol/L (3.5-5.1)
[2016-07-13 06:11] LABS: CREATININE 1.37 mg/dl (0.61-1.24)
[2016-07-13 06:12] LABS: CALCIUM 8.4 mg/dl (8.4-10.2)
[2016-07-13 06:18] LABS: CK-MB 7.13 ng/ml (0.0-2.4); TROPONIN-I 0.245 ng/ml (0.00-0.12)
[2016-07-13] MEDS: DIPYRIDAMOLE/ASPIRIN (SR) CAP PO SCH ×2 (08:36→20:09)
[2016-07-13] MEDS: FAMOTIDINE 20 MG INJ IV SCH (08:39)
[2016-07-13] MEDS: DOCUSATE SODIUM 100 MG CAP PO SCH (08:39)
[2016-07-13] MEDS: NEBIVOLOL 5 MG TAB PO SCH ×2 (08:40→20:10)
[2016-07-13] MEDS: HEPARIN 5,000 UNIT/0.5 ML SYG SC SCH ×2 (08:52→20:18)
[2016-07-13] MEDS ORDERED: INFLUENZA VIRUS VACCINE 0.5 ML (DISPENSING) IM* ONE (09:00)
[2016-07-13] MEDS: ACETAMINOPHEN 325 MG TAB PO PRN (10:23)
--- NOTE | 2016-07-13 10:51 | PN ---
Date/Time of Note Date/Time of Note DATE: 07/13/16 TIME: 10:45 Assessment/Plan VTE Prophylaxis VTE Prophylaxis Intervention: SCD's Lines/Catheters IV Catheter Type (from Nrs): Peripheral IV Assessment/Plan Chief Complaint/Hosp Course Assessment/Plan 1. left shoulder fx 2/2 to fall, orthopedic surgeon has been consulted, patient has been placed on a shoulder sling , continue pain medication 2. Syncope - 2/2 to possible vs POTS vs other -continue to monitor at telemetry, fall precautions, orthostatic vitals 2. ARTIE - 2/2 to ATN vs other - renally adjust medications, avoid nephrotoxins, monitor trend 3. Hypertensive Urgency -better controlled, will continue home medications, hydralazine and labetalol prn for SBP > 160 4. BPH - continue with alpha inhibitor 5. CHF -compensated , continue with lasix 6. GI ppx - pepcid 7. 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 Problems: Subjective 24 Hr Interval Summary Free Text/Dictation Patient continues to complain of having left shoulder pain Tolerating oral intake Denies of any chest pain or shortness of breath Exam/Review of Systems Vital Signs Vitals Vital Signs Date Time Temp Pulse Resp B/P Pulse Ox O2 Delivery O2 Flow Rate FiO2 07/13/16 08:41 145/65 07/13/16 08:26 97.9 70 21 97 07/11/16 23:01 Room Air 07/11/16 15:16 2 Intake and Output 07/12/16 07/12/16 07/13/16 14:59 22:59 06:59 Intake Total 1420 ml 200 ml Output Total 1000 ml 400 ml Balance 420 ml -200 ml Exam General: The patient is well-developed, Not in acute distress. HEENT: Atraumatic, normocephalic. The pupils are equal and round . Neck: Supple with full range of motion. Chest: Normal expansion of the thorax during inspiration Lungs: Clear to auscultation bilaterally Heart: Normal S1-S2, Regular rhythm and rate. Abdomen: Soft , nontender, nondistended , bowel sounds are present. Extremities: Left upper extremity bruising with decreased range of motion, no edema no cyanosis Neurologic: Normal mental status,The patient is awake, alert and oriented . Results Result Diagram: 07/13/1651807/13/16518 Results 24 hrs Laboratory Tests Test 07/12/16 13:35 07/12/16 20:25 07/13/16 05:19 Creatine Kinase 1024 #H 860 H 800 H Creatine Kinase Index 1.3 1.0 0.9 Creatinine Kinase MB (Mass) 13.00 H 8.61 H 7.13 H Troponin I 0.323 *H 0.357 *H 0.245 *H Anion Gap 16 Basophils # 0.0 Basophils % 0.6 Blood Morphology Comment Blood Urea Nitrogen 35 H Calcium Level 8.4 Carbon Dioxide Level 26 Chloride Level 106 Creatinine 1.37 H Eosinophils # 0.0 Eosinophils % 0.7 Glucose Level 112 Hematocrit 37.1 L Hemoglobin 12.4 L Lymphocytes # 1.2 Lymphocytes % 18.4 Magnesium Level 2.1 Mean Corpuscular Hemoglobin 31.8 Mean Corpuscular Hemoglobin Concent 33.6 Mean Corpuscular Volume 94.8 Mean Platelet Volume 7.3 L Monocytes # 0.5 Monocytes % 7.0 Neutrophils # 4.9 Neutrophils % 73.3 Nucleated Red Blood Cells # 0.0 Nucleated Red Blood Cells % 0.0 Platelet Count 208 Potassium Level 3.9 Red Blood Count 3.91 L Red Cell Distribution Width 12.4 Sodium Level 144 White Blood Count 6.7 Medications Medications Current Medications Lorazepam (Ativan) 0.5 mg Q6H PRN IV ANXIETY; Start 07/11/16 at 18:30 Ondansetron HCl (Zofran Inj) 4 mg Q6H PRN IV NAUSEA AND/OR VOMITING; Start 07/11 at 18:30 Nitroglycerin (Nitroglycerin (Sl Tab) 0.4 Mg) 1 tab Q5M PRN SL CHEST PAIN; Start 07/11/16 at 18:30 Acetaminophen (Tylenol Tab) 650 mg Q6H PRN PO PAIN LEVEL 1-3 OR FEVER Last administered on 07/13/16t 10:23; Admin Dose 650 MG; Start 07/11/16 at 18:30 Morphine Sulfate (morphine) 2 mg Q4H PRN IV PAIN LEVEL 7-10; Start 07/11/16 at 18:30 Docusate Sodium (Colace) 100 mg Q12H PRN PO CONSTIPATION; Start 07/11/16 at 18: 30 Heparin Sodium (Porcine) (Heparin (5000 Units/0.5 ml)) 5,000 unit Q12 SC Last administered on 07/13/16 08:52; Admin Dose 5,000 UNIT; Start 07/11/16 at 21:00 Dipyridamole/ Aspirin (Aggrenox) 1 cap BID PO Last administered on 07/13/16 08: 36; Admin Dose 1 CAP; Start 07/11/16 at 21:00 Docusate Sodium (Colace) 100 mg DAILY PO Last administered on 07/13/16 08:39; Admin Dose 100 MG; Start 07/12/16 at 09:00 Miscellaneous Medication (Bystolic) 10 mg BID PO Last administered on 07/13/16 08:40; Admin Dose 10 MG; Start 07/11/16 at 21:00 Labetalol HCl (Labetalol) 10 mg Q6H PRN IV sbp >160 Last administered on 04:38; Admin Dose 10 MG; Start 07/11/16 at 18:30 Famotidine (Pepcid Iv) 20 mg DAILY IV Last administered on 07/13/16 08:39; Admin Dose 20 MG; Start 07/12/16 at 09:00 LISA CONCEPCION MD Jul 13, 2016 10:51
--- NOTE | 2016-07-13 13:05 | CONS ---
Date/Time of Note Date/Time of Note DATE: 07/13/16 TIME: 13:03 Assessment/Plan Assessment/Plan Additional Assessment/Plan Fall, possible syncope Hypertension Orthostatic hypotension Hypovolemia Preserved ejection fraction Left shoulder fracture Possible history of CVA -Patient with minimally elevated troponin likely secondary to hypertension and increased renal clearance. Denies chest pain or shortness of breath. Blood pressure has been labile, given issues with orthostatic hypotension, will start low dose Norvasc in addition to Bystolic. Unable to use VICTORIA inhibitor given renal dysfunction. Carotid ultrasound without evidence of mild to moderate plaque. Would start low dose statin and continue aspirin therapy. Consultation Date/Type/Reason Admit Date/Time Jul 11, 2016 at 17:46 Initial Consult Date Type of Consultation: cv 24 HR Interval Summary Free Text/Dictation Denies chest pain, shortness of breath, dizziness or palpitations Exam/Review of Systems Vital Signs Vitals Vital Signs Date Time Temp Pulse Resp B/P Pulse Ox O2 Delivery O2 Flow Rate FiO2 07/13/16 12:19 97.6 71 20 167/73 96 07/11/16 23:01 Room Air 07/11/16 15:16 2 Intake and Output 07/12/16 07/12/16 07/13/16 15:00 23:00 07:00 Intake Total 1420 ml 200 ml Output Total 1000 ml 400 ml Balance 420 ml -200 ml Exam Constitutional: alert, oriented Head: normocephalic Neck: supple Respiratory: other (course breath sounds bilaterally, no wheezing) Cardiovascular: other (S1-S2 heard), regular rate and rhythm Gastrointestinal: bowel sounds, non-tender, soft Extremities: edema (trace) Results Result Diagram: 07/13/16 0519 07/13/16 0519 Results 24 hrs Laboratory Tests Test 07/12/16 13:35 07/12/16 20:25 07/13/16 05:19 Creatine Kinase 1024 #H 860 H 800 H Creatine Kinase Index 1.3 1.0 0.9 Creatinine Kinase MB (Mass) 13.00 H 8.61 H 7.13 H Troponin I 0.323 *H 0.357 *H 0.245 *H Anion Gap 16 Basophils # 0.0 Basophils % 0.6 Blood Morphology Comment Blood Urea Nitrogen 35 H Calcium Level 8.4 Carbon Dioxide Level 26 Chloride Level 106 Creatinine 1.37 H Eosinophils # 0.0 Eosinophils % 0.7 Glucose Level 112 Hematocrit 37.1 L Hemoglobin 12.4 L Lymphocytes # 1.2 Lymphocytes % 18.4 Magnesium Level 2.1 Mean Corpuscular Hemoglobin 31.8 Mean Corpuscular Hemoglobin Concent 33.6 Mean Corpuscular Volume 94.8 Mean Platelet Volume 7.3 L Monocytes # 0.5 Monocytes % 7.0 Neutrophils # 4.9 Neutrophils % 73.3 Nucleated Red Blood Cells # 0.0 Nucleated Red Blood Cells % 0.0 Platelet Count 208 Potassium Level 3.9 Red Blood Count 3.91 L Red Cell Distribution Width 12.4 Sodium Level 144 White Blood Count 6.7 Medications Medications Current Medications Lorazepam (Ativan) 0.5 mg Q6H PRN IV ANXIETY; Start 07/11/16 at 18:30 Ondansetron HCl (Zofran Inj) 4 mg Q6H PRN IV NAUSEA AND/OR VOMITING; Start 07/11 at 18:30 Nitroglycerin (Nitroglycerin (Sl Tab) 0.4 Mg) 1 tab Q5M PRN SL CHEST PAIN; Start 07/11/16 at 18:30 Acetaminophen (Tylenol Tab) 650 mg Q6H PRN PO PAIN LEVEL 1-3 OR FEVER Last administered on 07/13/16 10:23; Admin Dose 650 MG; Start 07/11/16 at 18:30 Morphine Sulfate (morphine) 2 mg Q4H PRN IV PAIN LEVEL 7-10; Start 07/11/16 at 18:30 Docusate Sodium (Colace) 100 mg Q12H PRN PO CONSTIPATION; Start 07/11/16 at 18: 30 Heparin Sodium (Porcine) (Heparin (5000 Units/0.5 ml)) 5,000 unit Q12 SC Last administered on 07/13/16 08:52; Admin Dose 5,000 UNIT; Start 07/11/16 at 21:00 Dipyridamole/ Aspirin (Aggrenox) 1 cap BID PO Last administered on 07/13/16 08: 36; Admin Dose 1 CAP; Start 07/11/16 at 21:00 Docusate Sodium (Colace) 100 mg DAILY PO Last administered on 07/13/16 08:39; Admin Dose 100 MG; Start 07/12/16 at 09:00 Miscellaneous Medication (Bystolic) 10 mg BID PO Last administered on 07/13/16 08:40; Admin Dose 10 MG; Start 07/11/16 at 21:00 Labetalol HCl (Labetalol) 10 mg Q6H PRN IV sbp >160 Last administered on 04:38; Admin Dose 10 MG; Start 07/11/16 at 18:30 Famotidine (Pepcid Iv) 20 mg DAILY IV Last administered on 07/13/16 08:39; Admin Dose 20 MG; Start 07/12/16 at 09:00 Samson Butler DO Jul 13, 2016 13:05
[2016-07-13] MEDS: AMLODIPINE 2.5 MG TAB PO SCH ×2 (14:43→20:09)
--- NOTE | 2016-07-13 15:39 | RADRPT ---
PROCEDURE: Retroperitoneal US. CLINICAL INDICATION: Renal insufficiency TECHNIQUE: Multiple sonographic images of the kidneys and retroperitoneum were obtained. The imag es were reviewed on a PACS workstation. COMPARISON: No prior studies are available for comparison. FINDINGS: The kidneys are normal in size, contour, cortical thickness. There is increased echogenicity of the kidneys. There are multiple cysts in the kidneys bilaterally, the largest in the right kidney measures 4.1 cm and the largest in the left kidney measures 5.2 cm. There is a 4.7 x 4.6 cm complex cyst in the le ft kidney with multiple septations. The right kidney measures 9.9 cm. The left kidney measures 11.2 cm. No kidney stones are visualized. There is no evidence for hydronephrosis. The urinary bladder is normal. The prostate is enlarged and measures 4.8 x 5.7 cm. RPTAT: AA IMPRESSION: Multiple bilateral simple kidney cysts. Slightly echogenic kidneys, consistent with medical renal disease. 4.7 cm complex cyst in the left kidney with multiple septations. Follow-up CT or MRI with and withou t contrast is recommended. Enlarged prostate. No evidence of hydronephrosis. .Sven Zuñiga MD, Date Time Electronically viewed and signed by .Sven Zuñiga MD, MD on 07/13/2016 15:38 .S/
--- NOTE | 2016-07-13 17:55 | CONS ---
DATE OF ADMISSION: 07/11/2016 DATE OF CONSULTATION: 07/13/2016 TYPE OF CONSULTATION: Nephrology. REASON FOR CONSULTATION: Acute kidney injury. PHYSICIAN REQUESTING CONSULT: Samson Butler DO HISTORY OF PRESENT ILLNESS: This is a 76-year-old male with a past medical history of hypertension, history of CHF, history of a recent left shoulder fracture secondary to fall, previous history of s yncope, who presents to [facility] with complaints of dizziness, lightheadedness. The patient was recently evaluated at [facility] after suffering a mechanical fall. The denise ent had a nondisplaced fracture of his shoulder, was placed in a sling. The patient at home was not ed to have dizziness, weakness and elevated blood pressure. As a result, he came into [facility] for evaluation. Upon arrival, patient was noted to be hypertensive with systolic pr essures in the 190s. In the emergency room, the patient was given parenteral blood pressure medicat ions and he was admitted to telemetry for further evaluation. While on telemetry, the patient has b een on multiple blood pressure medications. His blood pressure has been fluctuating between 130 to 180 mmHg. During this time, the patient has had no other acute events or syncopal events noted. In terms of the patient's renal history, the patient states he has no prior kidney disease and no pr ior masses or lesions regarding his kidney function. The patient denies any recent episodes of hemo ptysis, hematemesis, any rashes, any problems with urine, any dysuria. PAST MEDICAL HISTORY: As stated above, history of hypertension, history of BPH, history of syncope, recent history of left humerus fracture. PAST SURGICAL HISTORY: Right hip surgery, right hip arthroplasty. FAMILY HISTORY: Positive for diabetes, hypertension. SOCIAL HISTORY: Does not drink, smoke or do drugs. MEDICATIONS: The patient's medications have been reviewed. REVIEW OF SYSTEMS: A 14-point review of systems was conducted. Pertinent positives as stated in HP I, otherwise negative. PHYSICAL EXAMINATION: VITAL SIGNS: Blood pressure is 180/84, respirations 20, pulse 73, temperature 97.6. I's AND O'S: The patient had 1600 in with 1400 out. HEENT: Head is normocephalic. NECK: Supple. HEART: Regular rate. LUNGS: Show diminished breath sounds at base. ABDOMEN: Soft, nontender to palpation. No rebound or guarding. EXTREMITIES: Negative for clubbing, cyanosis. No edema. DERMATOLOGIC: No rashes. MUSCULOSKELETAL: The patient's left shoulder is in a sling. NEUROLOGIC: No focal deficits. LABORATORY DATA: Shows sodium 144, potassium 3.9, chloride 106, BUN 35, creatinine 1.37. CK level of 800. Troponin level of 0.245. White count 6.7, hemoglobin 10.4, hematocrit 37.1, platelet count 208. IMAGING STUDIES: The patient's renal ultrasound shows multiple bilateral simple kidney cysts, echog enic kidneys. Kidney size of 9 and 11 cm, respectively. A 4.7 complex cyst in the left kidn ey with multiple septations. Enlarged prostate. The patient's 2D echo shows a preserved ejection f raction, normal IVC size and compressibility with respiration and peak systolic arterial pressures o f 35 mmHg. ASSESSMENT AND PLAN: This is a 76-year-old male who presents with: 1. Renal insufficiency, possible acute kidney injury on top of chronic kidney disease versus chroni c kidney disease. The patient's etiology of possible acute kidney injury may be secondary to hemody namic fluctuations, which can cause tubular injury. The patient's renal ultrasound does show increa sed echogenicity of the kidneys suggestive of chronic kidney disease. Plan at this point would be t o check a UA with microanalysis. Will check urine electrolytes. Would continue current blood press ure regimen and adjust medications as needed. Would avoid significant hemodynamic fluctuations, whi ch can cause a relative hypoperfusion and decreased effective arterial perfusion of the kidneys. Wo uld otherwise continue current treatment plan. We will continue supportive care, renally dose meds, avoid nephrotoxins. 2. Probable chronic kidney disease. Etiology is likely due to hypertensive nephrosclerosis given p kaylin's longstanding history of hypertension. However, we will rule out other etiologies. We will check a UA with microanalysis, check urine electrolytes, calculate and quantify a protein/creatinin e ratio and albumin/creatinine ratio. Continue treating acute kidney injury as stated above. Will continue good blood pressure control. 3. A complex cyst in the left kidney. The patient needs further evaluation with a CT and/or MRI. However, given the fact the patient may be in acute kidney injury, would defer contrast imaging at t his time. We will monitor closely. I would also recommend an outpatient evaluation with urology. 4. Mineral bone disorder. We will check a PTH, vitamin D25 level, calcium and phosphorus level. 5. Hypertensive urgency. Etiology may be multifactorial. At this point, continue current blood pr essure regimen. Monitor blood pressure closely to avoid significant hemodynamic fluctuations avoidi ng episodes. 6. Possible syncope. Underlying etiology is unclear, may be related to significant hemodynamic flu ctuations. We will continue to monitor. May consider neurologic evaluation. 7. Left shoulder fracture. Continue medical management. Continue mobilizing sling. 8. History of cerebrovascular accident. Continue current medical management with aspirin and stati n therapy. Thank you, Dr. Butler, for this interesting consultation. It will be a pleasure to follow the patie nt with you throughout the hospital course. Dictated By: ANURAG BULL/POLO Conf#: [id number] DID#: [id number]
[2016-07-14] VITALS (10 sets, daily range): BP systolic 142–190; BP diastolic 63–77; PULSE 67–78; RESP 18–20
[2016-07-14 06:12] LABS: BASOPHILS % 0.3 % (0.0-2.0); EOSINOPHILS # 0.1 10^3/ul (0.0-0.5); EOSINOPHILS % 1.4 % (0.0-7.0); HEMATOCRIT 37.5 % (42.0-52.0); HEMOGLOBIN 12.5 g/dl (14.0-18.0); LYMPHOCYTES % 16.2 % (15.0-51.0); MEAN CORPUSCULAR HEMOGLOBIN 31.9 pg (29.0-33.0); MEAN CORPUSCULAR HGB CONC 33.4 g/dl (32.0-37.0); MEAN CORPUSCULAR VOLUME 95.4 fl (82.0-101.0); MEAN PLATELET VOLUME 7.3 fl (7.4-10.4); MONOCYTE # 0.6 10^3/ul (0.3-0.9); MONOCYTES % 9.9 % (0.0-11.0); NEUTROPHIL # 4.4 10^3/ul (1.6-7.5); NEUTROPHILS % 72.2 % (39.0-77.0); PLATELET COUNT 227 10^3/UL (140-440); RED BLOOD COUNT 3.93 10^6/ul (4.70-6.10); RED CELL DISTRIBUTION WIDTH 12.3 % (11.5-14.5); UNCORRECTED WBC 6.1 10^3/ul (4.8-10.8); WHITE BLOOD COUNT 6.1 10^3/ul (4.8-10.8)
[2016-07-14 06:35] LABS: CONDITION 1
[2016-07-14 07:36] LABS: POTASSIUM 4.5 mmol/L (3.5-5.1)
[2016-07-14 07:38] LABS: CREATININE 1.2 mg/dl (0.61-1.24)
[2016-07-14 07:39] LABS: CALCIUM 9.1 mg/dl (8.4-10.2)
[2016-07-14 07:40] LABS: MAGNESIUM 2.1 mg/dl (1.7-2.5)
[2016-07-14] MEDS: DIPYRIDAMOLE/ASPIRIN (SR) CAP PO SCH (08:04)
[2016-07-14] MEDS: FAMOTIDINE 20 MG INJ IV SCH (08:04)
[2016-07-14] MEDS: DOCUSATE SODIUM 100 MG CAP PO SCH (08:05)
[2016-07-14] MEDS: NEBIVOLOL 5 MG TAB PO SCH (08:05)
[2016-07-14] MEDS: AMLODIPINE 2.5 MG TAB PO SCH (08:05)
[2016-07-14] MEDS: HEPARIN 5,000 UNIT/0.5 ML SYG SC SCH (08:07)
--- NOTE | 2016-07-14 10:23 | PN ---
DATE: 07/14/2016 SUBJECTIVE: The patient is stable, no acute events overnight. The patient this morning is still co mplaining about constipation. The patient denies any chest pain, fevers, chills, denies any dysuria or hematuria. OBJECTIVE: VITAL SIGNS: Blood pressure is 190/70, respirations 20, pulse 73, temperature 97.7. HEENT: Head is normocephalic. NECK: Supple. HEART: Regular rate. LUNGS: Show diminished breath sounds at base. ABDOMEN: Soft, nontender to palpation. No rebound or guarding. EXTREMITIES: Negative for clubbing, cyanosis, no edema. DERMATOLOGIC: No rashes. MUSCULOSKELETAL: No joint effusions. NEUROLOGIC: No focal deficits. LABORATORY DATA: Shows sodium 144, potassium 4.5, creatinine 0.6, hematocrit 40, creatinine 1.20. White count 6.1, hemoglobin 10.5, hematocrit 37.5, platelet count is 227. Patient imaging studies w ere reviewed. Urine studies are currently pending. ASSESSMENT AND PLAN: 1. Nonoliguric acute kidney injury on top of chronic kidney disease with unknown baseline creatinin e. Etiology of acute kidney injury was likely due to hemodynamic fluctuations. The patient's renal ultrasound does show increased echogenicity consistent with chronic kidney disease. Plan at this p oint is still to follow up patient's urinalysis. Urine electrolytes are still pending. We will cont inue current blood pressure regimen. We will up titrate Norvasc as needed. Avoid significant hemody namic fluctuations, which could cause relative hyperperfusion and decreased effective arterial perfu [place] of the kidneys. We will otherwise monitor closely. Continue supportive care, renally dose all meds, and avoid nephrotoxins. 2. Chronic kidney disease. Etiology may be secondary to hypertension and nephrosclerosis due to lo ng-standing hypertension. A full workup is ongoing. A urinalysis pending. SPEP, UPEP are pending. Urine electrolytes are pending. We will continue to treat acute kidney injury as above, monitor b lood pressure closely. 3. Complex left renal cyst. The patient will likely need a CT and/or MRI with contrast for further delineation, and a urology evaluation. This can be done in an outpatient setting. 4. Mineral bone disorder. We will follow up PTH, vitamin D level. Continue to monitor calcium and phosphorus levels. 5. Hypertensive urgency. Etiology is multifactorial secondary to pain and anxiety. Continue curre nt blood pressure regimen, up titrate as needed. We will monitor closely. 6. Possible syncope, etiology is unclear, possibly due to hemodynamic fluctuations. Continue to mo nitor. 7. Left shoulder fracture. Continue medical management. 8. History of cerebrovascular accident. Continue medical management. Continue aspirin and statin therapy. Dictated By: ANURAG CORREA DO NR/NTS Conf#: [id number] DID#: [id number]
--- NOTE | 2016-07-14 11:56 | CONS ---
Date/Time of Note Date/Time of Note DATE: 07/14/16 TIME: 11:48 Assessment/Plan Assessment/Plan Additional Assessment/Plan Fall, possible syncope Hypertension Orthostatic hypotension Hypovolemia Preserved ejection fraction Left shoulder fracture Possible history of CVA Acute kidney injury, improving -Patient still with elevated blood pressure remains asymptomatic. Would increase dose of Norvasc. Patient had renal ultrasound done with complex cyst. This was discussed with our radiology colleague and recommended outpatient MRI versus CT scan with contrast once renal function improves. Consultation Date/Type/Reason Admit Date/Time Jul 11, 2016 at 17:46 Type of Consultation: cv 24 HR Interval Summary Free Text/Dictation Patient denies chest pain, shortness of breath or palpitations. Exam/Review of Systems Vital Signs Vitals Vital Signs Date Time Temp Pulse Resp B/P Pulse Ox O2 Delivery O2 Flow Rate FiO2 07/14/16 11:27 97.7 77 20 174/77 98 07/11/16 23:01 Room Air 07/11/16 15:16 2 Intake and Output 07/13/16 07/13/16 07/14/16 15:00 23:00 07:00 Intake Total 650 ml 140 ml Balance 650 ml 140 ml Exam No apparent distress Constitutional: alert, oriented Head: normocephalic Neck: supple Respiratory: clear to auscultation, normal air movement Cardiovascular: other (S1-S2 heard), regular rate and rhythm Gastrointestinal: bowel sounds, non-tender, soft Extremities: other (no edema) Results Result Diagram: 07/14/16 0535 07/14/16 0535 Results 24 hrs Laboratory Tests Test 07/14/16 05:35 Anion Gap 19 H Basophils # 0.0 Basophils % 0.3 Blood Morphology Comment Blood Urea Nitrogen 40 H Calcium Level 9.1 Carbon Dioxide Level 24 Chloride Level 106 Creatinine 1.20 Eosinophils # 0.1 Eosinophils % 1.4 Glucose Level 102 Hematocrit 37.5 L Hemoglobin 12.5 L Lymphocytes # 1.0 Lymphocytes % 16.2 Magnesium Level 2.1 Mean Corpuscular Hemoglobin 31.9 Mean Corpuscular Hemoglobin Concent 33.4 Mean Corpuscular Volume 95.4 Mean Platelet Volume 7.3 L Monocytes # 0.6 Monocytes % 9.9 Neutrophils # 4.4 Neutrophils % 72.2 Nucleated Red Blood Cells # 0.0 Nucleated Red Blood Cells % 0.0 Phosphorus Level 3.8 Platelet Count 227 Potassium Level 4.5 Red Blood Count 3.93 L Red Cell Distribution Width 12.3 Sodium Level 144 White Blood Count 6.1 Medications Medications Current Medications Lorazepam (Ativan) 0.5 mg Q6H PRN IV ANXIETY Last administered on 07/13/16 20: 09; Admin Dose 0.5 MG; Start 07/11/16 at 18:30 Ondansetron HCl (Zofran Inj) 4 mg Q6H PRN IV NAUSEA AND/OR VOMITING; Start 07/11 at 18:30 Nitroglycerin (Nitroglycerin (Sl Tab) 0.4 Mg) 1 tab Q5M PRN SL CHEST PAIN; Start 07/11/16 at 18:30 Acetaminophen (Tylenol Tab) 650 mg Q6H PRN PO PAIN LEVEL 1-3 OR FEVER Last administered on 07/13/16 10:23; Admin Dose 650 MG; Start 07/11/16 at 18:30 Morphine Sulfate (morphine) 2 mg Q4H PRN IV PAIN LEVEL 7-10; Start 07/11/16 at 18:30 Docusate Sodium (Colace) 100 mg Q12H PRN PO CONSTIPATION; Start 07/11/16 at 18: 30 Heparin Sodium (Porcine) (Heparin (5000 Units/0.5 ml)) 5,000 unit Q12 SC Last administered on 07/14/16 08:07; Admin Dose 5,000 UNIT; Start 07/11/16 at 21:00 Dipyridamole/ Aspirin (Aggrenox) 1 cap BID PO Last administered on 07/14/16 08: 04; Admin Dose 1 CAP; Start 07/11/16 at 21:00 Docusate Sodium (Colace) 100 mg DAILY PO Last administered on 07/14/16 08:05; Admin Dose 100 MG; Start 07/12/16 at 09:00 Miscellaneous Medication (Bystolic) 10 mg BID PO Last administered on 07/14/16 08:05; Admin Dose 10 MG; Start 07/11/16 at 21:00 Labetalol HCl (Labetalol) 10 mg Q6H PRN IV sbp >180 Last administered on 04:38; Admin Dose 10 MG; Start 07/11/16 at 18:30 Famotidine (Pepcid Iv) 20 mg DAILY IV Last administered on 07/14/16 08:04; Admin Dose 20 MG; Start 07/12/16 at 09:00 Amlodipine Besylate (Norvasc) 2.5 mg BID PO Last administered on 07/14/16 08:05 ; Admin Dose 2.5 MG; Start 07/13/16 at 13:00 Samson Butler DO Jul 14, 2016 11:56
[2016-07-14] MEDS ORDERED: AMLODIPINE 2.5 MG TAB PO ONE (12:00)
--- NOTE | 2016-07-14 13:28 | PDOCDIS ---
Discharge Instructions CONDITION Patient Condition: Good HOME CARE INSTRUCTIONS: Special Diet: cardiac ACTIVITY: Activity Restrictions: Slowly Increase Activity Rest between Activity Special Exercises FOLLOW UP/APPOINTMENTS Appointments Follow up with orthopedic surgeon in one week LISA CONCEPCION MD Jul 14, 2016 13:28
[2016-07-14] MEDS ORDERED: CARV6.25 PO (13:29)
[2016-07-14] MEDS ORDERED: AMLO5TAB4 PO (13:29)
--- NOTE | 2016-07-14 14:58 | DS ---
DATE OF ADMISSION: 07/11/2016 DATE OF DISCHARGE: 07/14/2016 [employer] 1. Orthopedic surgeon. 2. Cardiology. Nephrology. DIAGNOSES 1. Status post fall. 2. Left shoulder fracture status post fall. 3. Syncope, likely secondary to possible paroxysmal orthopnea, hypertension. 4. Acute renal insufficiency, resolved. 5. Hypertensive urgency, better controlled. 6. Benign prostatic hypertrophy. The patient has been placed on Flomax. 7. Congestive heart failure, compensated. MEDICATIONS: 1. Tylenol. 2. Aggrenox. 3. Colace. 4. Nitroglycerin. 5. Lasix. 6. Norvasc. 7. Coreg. 8. Pepcid. 9. Hydralazine p.r.n. 10. Percocet p.r.n. 11. Flomax. DIET: Cardiac. INSTRUCTIONS: PT, OT evaluate and treat. DISPOSITION: To senior care facility for physical therapy. HOSPITAL COURSE: This is a very pleasant 76-year-old gentleman with past medical history of essenti al hypertension, BPH, recent fall with left shoulder fracture secondary to fall with subsequent sync opal episode. The patient has had elevated blood pressure readings at home, was found to have dizzi ness and lightheadedness. There was no trauma to his head. The patient has had multiple episodes o f presyncope, which he had to sit and catch his balance in the past. Unfortunately, he lives alone and his son was recently diagnosed with a CVA and is at a senior care facility, and he has been anxious although he does not have any history or current suicidal ideation or wanting to hurt himsel f. The patient was admitted to [facility] where his EKG showed sinus bradycardia with ventricular rate of 59, left axis deviation, prolonged QT. Cardiology was consulted. Serial t roponin in the beginning was found to be negative, although his troponin started to increase to 0.32 3 and 0.357 and 0.245. The patient also was found to have elevated creatinine of 1.28 and 1.30. Th e elevated troponin was believed to be secondary to acute renal insufficiency and dehydration. The patient was placed on gentle IV hydration. He was seen and evaluated by the orthopedic surgeon keely reed to his right shoulder fracture and found to have right humeral fracture. CT of the brain showed no acute intracranial abnormality, severe chronic-appearing microvascular ischemic changes o f the supratentorial white matter with multiple small chronic-appearing lacunar infarcts of the bila teral basal ganglia. Carotid Doppler was obtained which showed mild to moderate soft plaque in the right ICA with 50 to 69% stenosis. The patient's cholesterol level was found to have triglycerides 85, total cholesterol 141, LDL 76, HDL 48, 1.20 off any statin. Due to this, the patient was not started on any statin, although he was continued on Aggrenox. The patient was continued on aggressive medical management. His blood pressure was found to be elev ated, high as 195/85, 202/72, 183/84. He was started on Norvasc and his Norvasc has been increased to 5 mg p.o. b.i.d. At this time, we have discontinued Bystolic and placed the patient on Coreg. A lso, the patient has been restarted on his home medication alpha melissa for his BPH, alfuzosin whic h has been transitioned to Flomax 0.4 mg p.o. q.p.m. At this time, the patient has been able to par ticipate with physical therapy. After discussing his discharge with the family and him, at this anirudh e the patient has decided to proceed to a senior care facility. I think this is a great idea fo r him since patient has been having loss of balance and he needs to forego physical therapy for his balance and to be observed for the next several weeks for comprehensive physical therapy. At this t arnold, patient is medically stable from cardiology, nephrology and medicine standpoint to be discharge d to a senior care facility. Dictated By: LISA GUERRERO/POLO Conf#: [id number] DID#: [id number]
[2016-07-14] MEDS ORDERED: AMLODIPINE 5 MG TAB PO SCH (21:00)
[2016-07-14] MEDS ORDERED: AMLODIPINE 2.5 MG TAB PO SCH (21:00)
[2016-07-14] MEDS ORDERED: ATORVASTATIN 20 MG TAB PO SCH (21:00)
[2016-07-15 04:08] LABS: PROTEIN, TOTAL 6.3 g/dL (6.1-8.1)
== END 2016-07-14 19:45 | DRG 560 ==
LOC: E/R 11:54 → TEL 17:46
PROVIDERS: ADMIT Student in an Organized Health Care Education/Training Program; ATTEND Student in an Organized Health Care Education/Training Program
DX: S42.255D Nondisplaced fracture of greater tuberosity of left humerus, subsequent encounter for fracture with routine healing (principal); N17.9 Acute kidney failure, unspecified; E86.0 Dehydration; I13.0 Hypertensive heart and chronic kidney disease with heart failure and stage 1 through stage 4 chronic kidney disease, or unspecified chronic kidney disease; I50.9 Heart failure, unspecified; S42.212D Unspecified displaced fracture of surgical neck of left humerus, subsequent encounter for fracture with routine healing; W01.0XXD Fall on same level from slipping, tripping and stumbling without subsequent striking against object, subsequent encounter; N40.1 Benign prostatic hyperplasia with lower urinary tract symptoms; I95.1 Orthostatic hypotension; I16.0 Hypertensive urgency; N18.9 Chronic kidney disease, unspecified; Z96.641 Presence of right artificial hip joint; Z79.82 Long term (current) use of aspirin; Z86.73 Personal history of transient ischemic attack (TIA), and cerebral infarction without residual deficits
CPT/HCPCS: 36415; 70450; 71010; 73030; 73060; 73070; 76775; 80048; 80053; 80061; 82550; 82553; 83036; 83735; 84100; 84155; 84165; 84443; 84484; 85025; 85610; 85730; 86320; 90686; 93005; 93306; 93880; 96372; 96374; 96375; 97116; 97163; 97530; J0360; J2060; J2270; J2405; J7030